=== PATIENT | male | born 2000 | race Caucasian/White ===

== ENCOUNTER 2024-02-19 22:23 | Emergency (ER) | payer OTHER, SELFPAY ==
[2024-02-19 22:26] VITALS: BP 130/70; BP 136/91; PULSE 82; PULSE 96; RESP 16; TEMP 36.6; O2SAT 100; O2SAT 99; BMI 16.5
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
--- NOTE | 2024-02-19 22:41 | PC.NURSE ---
Pt changed over by security, placed into safety attire. Belongings secured into pod. 1:1 sitter.
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
--- NOTE | 2024-02-20 00:02 | MHC.EDTECH ---
Pt refusing labs at this time. Rowan CASTILLO aware.
[2024-02-20 01:15] LABS: Appearance Urine Turbid; Color Urine Yellow; Glucose Urine UA Negative (Negative); Leukocyte Esterase Urine Negative (Negative); Nitrite Urine Negative (Negative); Urine Blood Negative (Negative); Urine Ketones Negative (Negative); Urine Protein Negative (Neg-Trace)
[2024-02-20 01:24] LABS: Amphetamine Screen Urine Not Detected (Not Detect); Barbiturates, Urine Not Detected (Not Detect); Benzodiazepines Screen Urine Not Detected (Not Detect); Buprenorphine Scr Not Detected (Not Detect); Cannabinoid Screen Urine POSITIVE (Not Detect); Cocaine Screen Urine Not Detected (Not Detect); Fentanyl, urine Not Detected (Not Detect); Methadone Screen, Urine Not Detected (Not Detect); Opiate Screen Urine Not Detected (Not Detect); Oxycodone Screen Urine Not Detected (Not Detect); Phencyclidine Screen Urine Not Detected (Not Detect)
[2024-02-20] MEDS: LORazepam 1 MG TABLET 2 MG PO (01:41)
[2024-02-20 01:45] VITALS: BP 118/86; PULSE 78; RESP 16; TEMP 36.9; O2SAT 100
[2024-02-20] MEDS: Acetaminophen 325 MG TABLET 650 MG PO (01:45)
--- NOTE | 2024-02-20 02:49 | MHC.EDTECH ---
Patient refused labs.
[2024-02-20 04:52] VITALS: BP 120/87; PULSE 86; RESP 16; TEMP 36.8; O2SAT 99
--- NOTE | 2024-02-20 08:38 | PC.NURSE ---
Received patient at 0820. Patient presents extremely agitated, yelling and cursing. Charge Nurse and Security made aware of patients presentation. Show of support on the unit. Patient started to calm down. Still yelling and cursing occasionally but no unsafe behaviors observed at this time.
[2024-02-20 09:41] LABS: MANUAL DIFF FLAG NO
[2024-02-20 09:42] LABS: Basophils Percent Auto 0.3 % (0-2); Eosinophils Absolute Auto 0.1 X10*3/uL (0.0-0.4); Hematocrit 45.4 % (42.0-52.0); Imm Gran Abs Auto 0.02 X10*3/uL (0.00-0.03); Imm Gran Pct Auto 0.3 % (0.0-0.4); Lymphocytes Absolute Auto 1.2 X10*3/uL (1.2-4.9); Mean Corpuscular HGB Conc 35.2 g/dl (31.0-36.0); Mean Corpuscular Hemoglobin 31.8 pg (27.0-33.0); Mean Corpuscular Volume 90.3 fL (80.0-98.0); Mean Platelet Volume 11.1 fL (9.4-12.4); Monocytes Absolute Auto 0.4 X10*3/uL (0.1-1.2); Monocytes Percent Auto 5.3 % (2-11); Neutrophils Absolute Auto 5.3 x10*3/uL (2.0-8.3); Neutrophils Percent Auto 76.1 % (45-73); Platelet Count 238 X10*3/uL (160-400); Red Blood Count 5.03 X10*6/uL (4.60-5.80); White Blood Count 6.9 X10*3/uL (4.8-10.8)
[2024-02-20 09:56] LABS: Ethanol < 10 mg/dL
[2024-02-20 09:58] LABS: Alanine Aminotransferase 37 U/L (0-40); Albumin Level 4.6 g/dL (3.5-5.0); Alkaline Phosphatase 49 U/L (39-117); Anion Gap 13 (12-20); Aspartate Amino Transferase 30 U/L (5-37); Bilirubin Total 1.9 mg/dL (0.0-1.0); Blood Urea Nitrogen 14 mg/dL (9-16); Calcium 10.2 mg/dL (8.4-10.2); Carbon Dioxide 27 mmol/L (22-29); Chloride 106 mmol/L (96-108); Creatinine Clr Calc Pharmacy 86.5; Estimated Glomerular Filt Rate > 60; Glucose Random 102 mg/dL (60-115); Potassium 4.3 mmol/L (3.3-5.1); Sodium 142 mmol/L (135-145); Total Protein 8.3 g/dL (6.5-8.0)
[2024-02-20 10:08] VITALS: BP 121/69; PULSE 75; RESP 18; TEMP 36.4; O2SAT 99
[2024-02-20 11:34] VITALS: BP 121/69; PULSE 75; RESP 18; TEMP 36.4; O2SAT 99
--- NOTE | 2024-02-20 14:50 | MHC.CARE ---
[facility] faxed referral to [facility]. Called and spoke to Georgie to activate.
== END 2024-02-20 11:41 | disposition home or self-care (01) ==
PROVIDERS: Emergency Provider Emergency Medicine Emergency Medical Services
DX: F32.A Depression, unspecified (principal); F12.90 Cannabis use, unspecified, uncomplicated
CPT/HCPCS: 36415; 80053; 80307; 81003; 85025; 99285; S9485

== ENCOUNTER 2024-04-23 12:06 | Emergency (ER) | payer OTHER, SELFPAY ==
--- NOTE | ~2024-04-23 | XR_ITS ---
EXAMINATION: XR CHEST CLINICAL INFORMATION: Cough COMPARISON: None available. TECHNIQUE: 2 views of the chest were obtained. FINDINGS: Clear lungs. No pleural effusion or pneumothorax. Normal heart size and mediastinal contours. XR/XR chest 2V IMPRESSION: No acute cardiopulmonary abnormality. Electronically signed by: Reinaldo Nguyen MD 04/23/2024 02:35 PM EDT
[2024-04-23 12:17] VITALS: BP 105/77; PULSE 88; RESP 18; TEMP 36.6; O2SAT 98; BMI 16.0
--- NOTE | 2024-04-23 12:20 | ED.GENADULT ---
HPI - General Adult General Chief complaint: Upper Respiratory Symptoms Stated complaint: uri Time Seen by Provider: 04/23/24 13:28 Source: patient, RN notes reviewed and old records reviewed History of Present Illness ED Provider: Leah Santiago PA-C HPI narrative: 24-year-old male with no significant past medical history presenting to the ED complaining of sore throat, myalgias, headache, dry cough, and congestion x few days. Admits to COVID-19 positive contact. Reports mild SOB and chest discomfort with cough. Denies travel, fever, chills, abdominal pain, ear pain Related Data Allergies Allergy/AdvReac Type Severity Reaction Status Date / Time No Known Allergies Allergy Verified 04/23/24 12:18 Review of Systems Review of Systems: Yes all other systems are reviewed and are negative Constitutional: Constitutional: Reports as per [facility] Past Medical History Attestation statement: The following information was validated with the patient. Source: old records reviewed Social History Social History Substance Use Type: Marijuana Advance Directives: No Advance Directives Information Provided: Yes Do you have a plan to hurt others: No Plan Physical Exam ED Vital Signs: Vital Signs - 24 hr 04/23/24 12:17 04/23/24 14:48 Temperature 98 F Pulse Rate 88 64 Respiratory Rate 18 17 Blood Pressure 105/77 124/72 Pulse Oximetry 98 100 Oxygen Delivery Method Room Air Room Air BMI result Body Mass Index 16.0 Const General: cooperative, healthy appearing and no acute distress Orientation/consciousness: patient oriented x3 Limitations: no limitations HENPR Head: Yes normal to inspection and Yes atraumatic Ears: hearing grossly normal bilaterally and external ears normal General nose exam: Normal external nose present Face and sinus: Yes normal facial exam Mouth: Normal oral and palatal mucosa present and no drooling Throat: Yes posterior oropharynx normal, Yes tonsils normal, Yes uvula midline, No uvula laterally displaced and No uvular edema Eyes General: appearance normal, both eyes and all related structures EOM: EOMs intact bilaterally Neck Neck: Yes normal visual inspection and Yes no meningeal signs Resp Effort & Inspection: normal respiratory effort and no respiratory distress Auscultation: clear to auscultation bilaterally, no crackles, no rales and no wheezes Cardio Rate: regular rate Heart sounds: S1 normal heart sound present and S2 normal heart sound present Skin Rashes: no rashes Wounds: no wounds Neuro General: patient oriented x3, tone normal and no meningeal signs Cranial nerves: Yes CN's II-XII intact bilaterally Gait exam (Neuro): Normal gait present Extrem General: Yes normal to inspection Course Course Course Narrative: RME performed by Nathalie Teague PA-C. Patient is a 24 year old assigned male at presenting to the emergency department with a cough and congestion. Detailed physical exam and review of systems are deferred to the physician relations manager. Imaging and swabs ordered. Patient placed back in the waiting room pending room availability and results. XR chest 2V IMPRESSION: No acute cardiopulmonary abnormality. -COVID/flu/RSV negative >1524--patient would like to discharge prior to rapid strep result. Will be contacted if positive only Results discussed with patient including worrisome signs and symptoms and strict return precautions, and when to return to the emergency department. They verbalized understanding and feel safe for discharge at this time. Medical Decision Making Medical Decision Making [facility] Narrative: 24-year-old male with no significant past medical history presenting to the ED complaining of sore throat, myalgias, headache, dry cough, and congestion x few days. On exam vital signs stable, NAD, nontoxic appearing, physical exam as noted above, lungs CTA, oropharynx WNL, uvula midline. Concern for viral illness vs strep pharyngitis. Low suspicion for ACS, PE, SCRAP CHARGER/retropharyngeal abscess Plan: Viral testing, CXR, rapid strep Please refer to course for remaining clinical decision making, interpretation of labs/imaging results, and discussions with consultants and/or family members. Differential Diagnosis Differential Diagnoses: The differential diagnosis associated with the presentation includes As above Lab Data [facility] Lab Attestation statement: I reviewed the patient's lab results. Labs: Lab Results 04/23/24 Range/Units 12:23 Influenza Type A (PCR) NEGATIVE (Negative) Influenza Type B (PCR) NEGATIVE (Negative) RSV RNA Qual (PCR) NEGATIVE (Negative) SARS-CoV-2 RNA (RT-PCR) NEGATIVE (Negative) Independent Interpretation I performed an independent interpretation of an: Plain X-Ray Radiology Impression Discussion of test interpretation with radiology: I have reviewed the radiologist's reading. External Record Review External record reviewed: Inpatient record, Office record, Outpatient record, Prior outpatient labs, Prior outpatient radiology, Primary care record and Outside ED record Tests considered The following testing was considered but not selected: As above Prescription Management I considered prescription management with: Pain Medication and Antibiotic Discharge Plan Discharge Clinical Impression: Upper respiratory infection Patient Disposition: Home, Self-Care Instructions: Upper Respiratory Infection (DC) Additional Instructions: You have a virus No antibiotics are indicated at this time Make sure you are staying hydrated. Drink plenty of fluids. Rest Alternate Tylenol and Motrin at home as needed for body aches and fever Follow-up with your doctor. If symptoms persist or worsen return to the emergency department *If you are a child & not tolerating liquid or urinating for more than 6 hours, or fevers are uncontrolled with medications at home, return to the emergency department* Referrals: ED Physician,Generic [Physician] - Print Language: Kyrgyz
[2024-04-23 13:08] LABS: Influenza A PCR NEGATIVE (Negative); Influenza B PCR NEGATIVE (Negative); Resp Syncy Virus RNA Qual PCR NEGATIVE (Negative); SARS COV2 PCR INHOUSE NEGATIVE (Negative)
[2024-04-23 14:48] VITALS: BP 124/72; PULSE 64; RESP 17; O2SAT 100
[2024-04-23 15:25] LABS: IDNOW Serial# 08D9AD1C; Strep A Nucleic Acid Negative (Negative)
[2024-04-23 15:27] VITALS: BP 124/72; PULSE 64; RESP 17; TEMP 37.1; O2SAT 100
== END 2024-04-23 15:27 | disposition home or self-care (01) ==
PROVIDERS: Physician Assistant; Physician Assistant Medical; Emergency Provider Emergency Medicine Emergency Medical Services
DX: J06.9 Acute upper respiratory infection, unspecified (principal); J02.9 Acute pharyngitis, unspecified; R51.9 Headache, unspecified; R05.9 Cough, unspecified; Z03.818 Encounter for observation for suspected exposure to other biological agents ruled out
CPT/HCPCS: 0241U; 71046; 87651; 99283

== ENCOUNTER 2024-08-06 12:37 | Emergency (ER) | payer OTHER, SELFPAY ==
--- NOTE | ~2024-08-06 | US_ITS ---
EXAMINATION: US ABDOMEN LIMITED CLINICAL INFORMATION: Right upper quadrant pain. COMPARISON: None available. TECHNIQUE: Real-time imaging of the right upper quadrant abdominal viscera. FINDINGS: PANCREAS: Visualized portions are unremarkable. LIVER: The liver is normal in size. The liver contour is normal. Parenchymal echogenicity is normal. No focal hepatic lesion. There is no intrahepatic biliary duct dilatation seen. GALLBLADDER: The gallbladder is physiologically distended without evidence of stones, sludge, wall thickening or pericholecystic fluid. Gallbladder polyps measuring 2 mm. COMMON BILE DUCT: Normal in caliber measuring 0.3 cm in diameter. RIGHT KIDNEY: No hydronephrosis. No renal calculi or focal parenchymal lesions. The kidney measures 9.6 cm in maximum dimension. FREE FLUID: None. US/US abdomen limited IMPRESSION: A gallbladder polyp measuring 2 mm. If patient has symptoms attributable to the gallbladder, cholecystectomy is suggested if there are no alternative causes for the symptoms and the patient is fit for and accepts surgery. If patient has no symptoms and risk factors are present or patient is symptomatic and cholecystectomy is deemed not appropriate, follow-up. Electronically signed by: Pam Hardin MD 08/06/2024 05:56 PM EST
[2024-08-06 12:40] VITALS: BP 104/66; PULSE 88; RESP 19; TEMP 36.6; O2SAT 98; BMI 16.0
--- NOTE | 2024-08-06 12:40 | ED_ITS ---
HPI - General Adult General Chief complaint: Abdominal Pain Stated complaint: Abdomen Pain Time Seen by Provider: 08/06/24 13:48 Source: patient Mode of arrival: ambulatory Limitations: no limitations History of Present Illness ED Provider: Nathalie Teague PA-C HPI narrative: Patient is a 24 year old assigned male at with no reported medical history presenting to the emergency department today with right upper quadrant abdominal pain, nausea, and vomiting. Patient states that over the last 5 days he has had right upper quadrant abdominal pain, nausea, and has vomited once. Patient denies any dizziness, lightheadedness, fever, chills, blurry vision, double vision, loss of vision, chest pain, difficulty breathing, shortness of breath, back pain, night sweats, pain with urination, increased urinary frequency, increased urinary urgency, blood in his urine or stool, syncope or a near syncopal episode, recent trauma or falls, bowel incontinence, bladder incontinence, or any other complaints at this time. Onset (ago): day(s) (5) Radiation: abdomen Relieving factors: none Exacerbating factors: none Associated symptoms: denies other symptoms Treatments prior to arrival: none Related Data Allergies Allergy/AdvReac Type Severity Reaction Status Date / Time No Known Allergies Allergy Verified 08/06/24 12:42 Review of Systems 2 Constitutional: Constitutional: Reports no additional constitutional complaints, Denies chills, Denies fever(s) and Denies night sweats Eyes: Eyes: Reports no additional eye complaints, Denies blurry vision, Denies change in vision, Denies diplopia, Denies eye discharge, Denies loss of vision and Denies eye pain ENT: Denies dizziness Cardiovascular: Cardiovascular: Reports no additional cardiovascular complaints, Denies chest pain, Denies lightheadedness, Denies Loss of Consciousness and Denies dyspnea Respiratory: Respiratory: Reports no additional respiratory complaints and Denies dyspnea Gastrointestinal: Gastrointestinal: Reports no additional gastrointestinal complaints, Reports abdominal pain (RUQ pain), Denies melena, Denies hematochezia, Denies change in bowel habits, Denies change in stool character, Reports nausea and Reports vomiting Genitourinary: Genitourinary: Reports no additional male genitourinary complaints, Denies hematuria, Denies oliguria, Denies difficulty urinating, Denies dysuria, Denies urinary frequency, Denies urinary hesitancy, Denies urinary incontinence and Denies urinary urgency Musculoskeletal: Musculoskeletal: Reports no additional musculoskeletal complaints, Denies numbness and Denies tingling Neurologic: Denies dizziness, Denies loss of vision, Denies numbness and Denies tingling Psychiatric: Psychiatric: Reports no additional psychiatric complaints Endocrine: Endocrine: Reports no additional endocrine complaints Hematologic/Lymphatic: Hematologic/Lymphatic: Reports no additional hematologic/lymphatic complaints Allergic/Immunologic: Allergic/Immunologic: Reports no additional allergic/immunologic complaints [facility] Past Medical History Attestation statement: The following information was validated with the patient. Source: old records reviewed and nursing notes reviewed Social History Social History Smoked in Last 30 Days: No Substance Use Type: Marijuana Advance Directives: No Advance Directives Information Provided: No Do you have a plan to hurt others: No Plan Physical Exam ED Vital Signs: Vital Signs - 24 hr 08/06/24 12:40 08/06/24 13:51 Temperature 98 F 97.8 F Pulse Rate 88 64 Respiratory Rate 19 18 Blood Pressure 104/66 110/70 Pulse Oximetry 98 100 Oxygen Delivery Method Room Air Room Air BMI result Body Mass Index 16.0 Const General: cooperative, no acute distress, alert and awake Nutritional Appearance: well nourished Orientation/consciousness: patient oriented x3 Limitations: no limitations HENMT Head: Yes normal to inspection and Yes atraumatic Ears: hearing grossly normal bilaterally and external ears normal General nose exam: Normal external nose present, no nasal discharge noted and no epistaxis Face and sinus: Yes normal facial exam, No abrasion and No laceration Mouth: Normal oral and palatal mucosa present, no drooling and no muffled voice Eyes General: appearance normal, both eyes and all related structures Periorbital: periorbital findings normal Eyelids: Yes eyelids normal Conjunctivae: conjunctivae normal Pupils: Equal, round and reactive pupils present EOM: EOMs intact bilaterally Neck Neck: Yes normal visual inspection, Yes full ROM and Yes no lymphadenopathy Chest Chest palpation & inspection: normal inspection of the chest Resp Effort & Inspection: normal respiratory effort and able to speak in complete sentences GI Inspection: Yes normal to inspection Palpation (GI): Soft to palpation, not firm, Tenderness to palpation present (GI) in the RUQ, no guarding and not rigid Neuro General: patient oriented x3 and moves all extremities Cranial nerves: Yes Equal, round and reactive pupils present Cognition (Neuro): normal cognition Extrem General: Yes normal to inspection, Yes full ROM and Yes capillary refill normal Psych Appearance: grossly normal Mental Status: mental status grossly normal Affect: normal affect Attitude: cooperative Thought process: Normal thought process present Thought content: Normal thought content present Insight: Good insight present (Psych) Course Course Course Narrative: This is a rapid medical exam performed by Sander Kelley NP: Additional HPI, ROS, PE not included below will be deferred to primary provider. Patient is a 24-year-old male presenting with complaint of colicky epigastric pain radiating to RUQ for the past 5 days. Vomited last night, a few episodes of diarrhea. Plan: labs Reevaluation(s) Reevaluation #1: Patient received in sign-out. The patient is requesting to drink water. I reviewed his case, he did present for upper abdominal pain, his ultrasound shows a gallbladder polyp but no evidence of cholecystitis. He has no white count, no fever. His T bili is slightly elevated to 1.9 although this is chronic for him as his last visit was identical. 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 It is likely that his pain today is related to gallbladder disease. We will refer him to outpatient General surgery. In the meantime I advised the patient to avoid fried foods. He was able to drink water without any difficulty and reports feeling well with no current abdominal pain or nausea Time: 18:13 Medications Administered Discontinued Medications Generic Name Dose Route Start Last Admin Trade Name Bobbi PRN Reason Stop Dose Admin Ketorolac Tromethamine 15 mg 08/06/24 13:52 08/06/24 14:02 Ketorolac Tromethamine 15 Mg/Ml Vial IVPUSH 08/06/24 13:53 15 mg ONCE ONE Administration Ondansetron HCl 4 mg 08/06/24 13:52 08/06/24 14:02 Ondansetron Hcl 4 Mg/2 Ml Vial IVPUSH 08/06/24 13:53 4 mg ONCE ONE Administration Medical Decision Making Medical Decision Making MDM Narrative: Patient is a 24 year old assigned male at with no reported medical history presenting to the emergency department today with right upper quadrant abdominal pain. Patient's physical exam was as noted in the physical exam portion of this note Patient's blood work was unremarkable. Patient's RUQ US is pending. I explained my physical exam findings as well as all test results to the patient. I answered all questions asked by the patient. Patient signed out to the evening PA. Differential Diagnosis Differential Diagnoses: The differential diagnosis associated with the presentation includes Cholecystitis Cholelithiasis RUQ abdominal pain Biliary colic Admission/Observation Consideration of admission/observation: Escalation of care including admission/observation considered Patient's disposition will be determined after US results. Lab Data [facility] Lab Attestation statement: I reviewed the patient's lab results. My interpretation of these results are in the [facility] Rationale portion of this note. 08/06/24 13:02 08/06/24 13:03 Labs: Lab Results 08/06/24 08/06/24 Range/Units 13:02 13:03 WBC 4.7 L (4.8-10.8) X10*3/uL RBC 4.82 (4.60-5.80) X10*6/uL Hgb 15.4 (14.0-18.0) g/dl Hct 43.3 (42.0-52.0) % MCV 89.8 (80.0-98.0) fL MCH 32.0 (27.0-33.0) pg MCHC 35.6 (31.0-36.0) g/dl RDW 11.7 (11.0-16.0) % Plt Count 172 D (160-400) X10*3/uL MPV 11.2 (9.4-12.4) fL Immature Gran % (Auto) 0.2 (0.0-0.4) % Neut % (Auto) 58.0 (45-73) % Lymph % (Auto) 30.2 (20-40) % [place] % (Auto) 9.3 (2-11) % Eos % (Auto) 1.9 (0-4) % Baso % (Auto) 0.4 (0-2) % Lymph # (Auto) 1.4 (1.2-4.9) X10*3/uL [place] # (Auto) 0.4 (0.1-1.2) X10*3/uL Eos # (Auto) 0.1 (0.0-0.4) X10*3/uL Baso # (Auto) 0.0 (0.0-0.2) X10*3/uL Abs Immat Gran (auto) 0.01 (0.00-0.03) X10*3/uL Absolute Neuts (auto) 2.8 (2.0-8.3) x10*3/uL Absolute Nucleated RBC 0.000 (0.0-0.012) X10*3/uL Nucleated RBC % (auto) 0.0 (0.0-0.2) /100WBC PT 12.5 H (10.9-12.4) SEC INR 1.1 (0.9-1.1) Sodium 139 (135-145) mmol/L Potassium 3.9 (3.3-5.1) mmol/L Chloride 107 (96-108) mmol/L Carbon Dioxide 28 (22-29) mmol/L Anion Gap 8 L (12-20) BUN 12 (9-16) mg/dL Creatinine 0.82 (0.5-1.4) mg/dL Estim Creat Clear Calc 88.4 Estimated GFR > 60 Random Glucose 95 (60-115) mg/dL Calcium 9.1 D (8.4-10.2) mg/dL Total Bilirubin 1.9 H (0.0-1.0) mg/dL Direct Bilirubin 0.5 (0.0-0.5) mg/dL AST 24 (5-37) U/L ALT 15 (0-40) U/L Alkaline Phosphatase 40 (39-117) U/L Total Protein 7.4 (6.5-8.0) g/dL Albumin 4.4 (3.5-5.0) g/dL Lipase 9 (8-78) U/L Discharge Plan Discharge Clinical Impression: Abdominal pain, RUQ Patient Disposition: Home, Self-Care Instructions: Abdominal Pain (ED) Additional Instructions: Your ultrasound of your gallbladder shows a 2 mm polyp that may be use possible for your pain. I recommend that you follow-up with general surgery, Dr. Sosa In the meantime, I advised that you avoid foods that are high in fats US/US abdomen limited IMPRESSION: A gallbladder polyp measuring 2 mm. If patient has symptoms attributable to the gallbladder, cholecystectomy is suggested if there are no alternative causes for the symptoms and the patient is fit for and accepts surgery. If patient has no symptoms and risk factors are present or patient is symptomatic and cholecystectomy is deemed not appropriate, follow-up. Electronically signed by: Pam Hardin MD 08/06/2024 05:56 PM EST Referrals: Alyson Sosa MD [Physician] - (Gallbladder polyp, right upper quadrant pain) Stand Alone Forms: Work/School Release Print Language: Kazakh
[2024-08-06 13:06] LABS: MANUAL DIFF FLAG NO
[2024-08-06 13:08] LABS: Basophils Percent Auto 0.4 % (0-2); Eosinophils Absolute Auto 0.1 X10*3/uL (0.0-0.4); Eosinophils Percent Auto 1.9 % (0-4); Hematocrit 43.3 % (42.0-52.0); Hemoglobin 15.4 g/dl (14.0-18.0); Imm Gran Abs Auto 0.01 X10*3/uL (0.00-0.03); Imm Gran Pct Auto 0.2 % (0.0-0.4); Lymphocytes Absolute Auto 1.4 X10*3/uL (1.2-4.9); Lymphocytes Percent Auto 30.2 % (20-40); Mean Corpuscular HGB Conc 35.6 g/dl (31.0-36.0); Mean Corpuscular Volume 89.8 fL (80.0-98.0); Mean Platelet Volume 11.2 fL (9.4-12.4); Monocytes Absolute Auto 0.4 X10*3/uL (0.1-1.2); Monocytes Percent Auto 9.3 % (2-11); Neutrophils Absolute Auto 2.8 x10*3/uL (2.0-8.3); Platelet Count 172 X10*3/uL (160-400); Red Blood Count 4.82 X10*6/uL (4.60-5.80); Red Cell Distribution Width 11.7 % (11.0-16.0); White Blood Count 4.7 X10*3/uL (4.8-10.8)
[2024-08-06 13:13] LABS: INTERNATIONAL NORM RATIO 1.1 (0.9-1.1); Prothrombin Time 12.5 SEC (10.9-12.4)
[2024-08-06 13:21] LABS: Alanine Aminotransferase 15 U/L (0-40); Albumin Level 4.4 g/dL (3.5-5.0); Alkaline Phosphatase 40 U/L (39-117); Anion Gap 8 (12-20); Aspartate Amino Transferase 24 U/L (5-37); Bilirubin Total 1.9 mg/dL (0.0-1.0); Blood Urea Nitrogen 12 mg/dL (9-16); Calcium 9.1 mg/dL (8.4-10.2); Carbon Dioxide 28 mmol/L (22-29); Chloride 107 mmol/L (96-108); Creatinine Clr Calc Pharmacy 88.4; Estimated Glomerular Filt Rate > 60; Glucose Random 95 mg/dL (60-115); Lipase 9 U/L (8-78); Potassium 3.9 mmol/L (3.3-5.1); Sodium 139 mmol/L (135-145); Total Protein 7.4 g/dL (6.5-8.0)
[2024-08-06 13:51] VITALS: BP 110/70; PULSE 64; RESP 18; TEMP 36.6; O2SAT 100
--- NOTE | 2024-08-06 13:57 | PC.NURSE ---
PT HAS TENDERNESS RUQ. Abd soft non tender. no distention. Only one bout of vomiting which was yesterday. moist mm. skin pwd. aware of plan of care.
[2024-08-06 13:58] LABS: Bilirubin Direct 0.5 mg/dL (0.0-0.5)
[2024-08-06] MEDS: ondansetron HCL 4 MG/2 ML VIAL IVPUSH (14:02)
[2024-08-06] MEDS: Ketorolac Tromethamine 15 MG/ML VIAL IVPUSH (14:02)
--- NOTE | 2024-08-06 16:30 | PC.NURSE ---
awaiting ultrasound. patient reports improvement in pain s/p pain medication administration
[2024-08-06 18:23] VITALS: BP 130/67; PULSE 64; RESP 16; TEMP 36.4; O2SAT 100
== END 2024-08-06 18:23 | disposition home or self-care (01) ==
PROVIDERS: Nurse Practitioner Family; Registered Nurse Emergency; Emergency Provider Emergency Medicine Emergency Medical Services
DX: R10.11 Right upper quadrant pain (principal); R10.2 Pelvic and perineal pain; Z79.899 Other long term (current) drug therapy
CPT/HCPCS: 36415; 76705; 80053; 82248; 83690; 85025; 85610; 96374; 96375; 99284; J1885; J2405

== ENCOUNTER 2024-08-15 10:16 | Outpatient (AMB) | payer OTHER, SELFPAY ==
--- NOTE | 2024-08-15 10:31 | MHC.OFFVIS ---
Vital Signs 08/15/24 10:35 Weight 104 lb BP 98/52 L Blood Pressure Location Rt brachial Position Sitting Pulse 62 Intake Visit Reasons: Rt upper quadrant abdominal pain Intake Note: Patient referred after ED visit for RUQ pain. Patient c/o: pain on and off for 1m. Diarrhea last wk but now back to normal BM. Abd US: 08-06-2024. [employer] Required: No Accompanied by: mom Ameena Buchanan Allergies No Known Allergies Allergy (Verified 08/15/24 10:33) HPI Comments Details: Patient presents, along with his mother, for follow-up status post recent ER visit for right upper quadrant pain radiating to his back. He is never had this before. He had sonogram demonstrated gallbladder polyp. He is unclear whether this symptomatology is related to his gallbladder or not. Patient otherwise has regular bowel habits. He is never been jaundiced before. He does not think he has fatty food intolerance. Chart was reviewed and patient evaluated [facility] Social History (Updated 08/15/24 @ 10:34 by BETSY Hummel) Patient Tobacco Use Status: Never used Tobacco Substance Use Type: Marijuana Physical Exam Vital Signs: Last Vital Signs Pulse 62 08/15/24 10:35 BP 98/52 L 08/15/24 10:35 Const Other: Very thin male in no acute distress. Eyes Other: Anicteric GI Other: Abdomen is scaphoid, soft, benign Assessment & Plan Assessment & Plan (1) Biliary dyskinesia: Code(s): K82.8 - Other specified diseases of gallbladder Category: Surgical Plan Because of the unclear nature of the patient's symptoms, current plan is to arrange for a gallbladder stimulation test to see if patient has deep biliary dyskinesia indirect further therapy/investigation based on these results. Coding Level of Care Code New Pt Level 4 (90111) Diagnoses Biliary dyskinesia K82.8
[2024-08-15 10:35] VITALS: BP 98/52; PULSE 62
== END 2024-08-15 10:41 | disposition home or self-care (01) ==
PROVIDERS: Visit Provider Surgery
DX: K82.8 Other specified diseases of gallbladder (principal)
CPT/HCPCS: 99204

== ENCOUNTER 2024-08-15 10:16 | Outpatient (REF) | payer OTHER, SELFPAY | END 2024-08-15 10:17 | disposition home or self-care (01) | LOC: HO.LNP 10:16 | PROVIDERS: Visit Provider Surgery | DX: K82.8 Other specified diseases of gallbladder (principal) | CPT/HCPCS: 88304; 88305; 88341; 88342; 99202 ==

== ENCOUNTER → 2024-09-11 11:09 | Outpatient (REF) | payer OTHER, SELFPAY ==
--- NOTE | ~2024-09-11 | NM_ITS ---
EXAMINATION: NM HEPATOBILIARY WITH PHARM HISTORY: K82.8 - Other specified diseases of gallbladder. TECHNIQUE: And hepatobiliary scan was performed following the intravenous administration of 5 mCi technetium 99 9-mebrofenin. Sequential images were obtained for one hour. The patient then received 0.99 mcg IV CCK over 30 minutes approximately 1 hour after injection of the radiopharmaceutical. COMPARISON: Correlation is made with an abdominal ultrasound dated 08/06/2024. FINDINGS: There is normal uptake and excretion of the radiopharmaceutical by the liver. Gallbladder activity is noted at 17 minutes. Common bile duct activity is seen at 18 minutes. Small bowel activity is noted at 22 minutes. After the administration of intravenous CCK, the estimated gallbladder ejection fraction is 47%, which is within normal limits. NM/NM hepatobiliary w pharm IMPRESSION: Normal hepatobiliary scan with a normal gallbladder ejection fraction. Electronically signed by: Esau Alejandre MD 09/11/2024 03:57 PM [facility]
== END ==
LOC: HO.NUCMED 11:09
PROVIDERS: Visit Provider Surgery
DX: K82.8 Other specified diseases of gallbladder (principal)
CPT/HCPCS: 78227; A9537; J2805

== ENCOUNTER → 2024-09-11 11:12 | Outpatient (BNV) | payer OTHER, SELFPAY | PROVIDERS: Visit Provider Radiology Diagnostic Radiology | DX: K82.8 Other specified diseases of gallbladder (principal) | CPT/HCPCS: 78227 ==